=== PATIENT | female | born 1965 | race Caucasian/White ===

== ENCOUNTER 2019-11-26 14:02 | Outpatient (CLI) | payer BC, SELFPAY ==
--- NOTE | ~2019-11-26 | XR_ITS ---
[XR_RIBSBI_CR ] INDICATION: Fracture of multiple ribs. TECHNIQUE: Frontal projection of the upper ribs, frontal projection of the lower ribs, oblique projec tion of all the ribs, frontal inspiratory chest x-ray for interpretation. FINDINGS: There is a healed left sixth rib fracture. There is a possible healed right third rib fract ure. Osteopenia. There are no soft tissue abnormality seen. The lungs are clear. IMPRESSION: 1:No acute displaced rib fractures. Reviewed, dictated and finalized at location A.
== END 2019-11-26 14:03 | disposition home or self-care (01) ==
LOC: ANHIMG 14:12
PROVIDERS: PCP Family Medicine; Visit Provider Family Medicine
DX: Z12.31 Encounter for screening mammogram for malignant neoplasm of breast (principal); S22.43XA Multiple fractures of ribs, bilateral, initial encounter for closed fracture; M81.0 Age-related osteoporosis without current pathological fracture; X58.XXXA Exposure to other specified factors, initial encounter
CPT/HCPCS: 71110

== ENCOUNTER 2019-12-25 13:37 | Outpatient (CLI) | payer BC, SELFPAY ==
--- NOTE | ~2019-12-25 | DEXA_ITS ---
Bone Density Report Name: Brianna Correa Age: 54 Sex: Female Ethnicity: White Date of : 1965 Indication: postmenopausal osteoporosis; height loss; prior fracture; Referring Provider: Boo, Chidi Marquez Study: Bone densitometry was performed. Exam Date: December 25, 2019 Accession number: [id number] Bone Density: Region BMD T-score Z-score Classification AP Spine (L1-L4) 0.721 -3.0 -1.9 Osteoporosis Femoral Neck (Left) 0.503 -3.1 -2.1 Osteoporosis Total Hip (Left) 0.673 -2.2 -1.6 Osteopenia Total Hip Bilateral Avg 0.684 -2.1 -1.5 Osteopenia Femoral Neck (Right) 0.454 -3.6 -2.5 Osteoporosis Total Hip (Right) 0.694 -2.0 -1.4 Osteopenia World Health Organization criteria for BMD impression classify patients as: Normal (T-score at or above -1.0), Osteopenia (T-score between -1.0 and -2.5), or Osteoporosis (T-score at or below -2.5). 10-year Fracture Risk: FRAX not reported because: Some T-score for Spine Total or Hip Total or Femoral Neck at or below -2.5 Prior hip or vertebral fracture Previous Exams: Region Exam Age BMD T-score BMD Change BMD Change Date g/cm2 vs Baseline vs Previous AP Spine(L1-L4) 12/25/2019 54 0.721 -3.0 0.003(0.5%) 0.003(0.5%) 06/16/2017 51 0.717 -3.0 Total Hip(Left) 12/25/2019 54 0.673 -2.2 -0.005(-0.8%) -0.005(-0.8%) 06/16/2017 51 0.678 -2.2 Total Hip(Right) 12/25/2019 54 0.694 -2.0 -0.005(-0.8%) -0.005(-0.8%) 06/16/2017 51 0.700 -2.0 *Denotes significance at 95% confidence level, LSC for AP Spine = 0.022 g/cm2, LSC for Total Hip = 0.027 g/cm2 Clinical Information Provided by Patient: Have had a previous hip or vertebral fracture Has had a low trauma fracture Smokes Has used the following medications: Actonel (i.e. risedronate) Patient maximum height was 65 Menopause Age: 43 Does not regularly consume dairy products Drinks caffeinated beverages Onset of menses at age 13 Number of children 0 Impression: The patient has established osteoporosis, based on the Right Femoral Neck T-score and the existence of a prior fracture. The patient has risk factors, including: smoking, previous fracture. No significant bone loss was observed. Discussion: HIGH RISK OF FRACTURE. BONE DENSITY IS UNDESIRABLY LOW AT ONE OR MORE SKELETAL SITES, CONSISTENT WITH POSTMENOPAUSAL OSTEOPOROSIS. This patient's lowest T-score, in a patient who has previously fractured, meets the World Health Organization's (WHO)
--- NOTE | ~2019-12-25 | MM_ITS ---
EXAMINATION: MM screening nubia BI w elizabeth HISTORY: Screening mammogram TECHNIQUE: Craniocaudal and mediolateral oblique 3-D tomosynthesis images were obtained and synthetic 2-D images were generated. Bilateral rotated lateral cc views. CAD analysis was submitted and interp reted. COMPARISON: 08/07/2009 bilateral digital screening mammogram BREAST PARENCHYMAL COMPOSITION: The breasts are heterogeneously dense, which may obscure small masses . FINDINGS: There is no evidence of suspicious mass, calcification, or architectural distortion to sugg est malignancy in either breast. There has been no suspicious interval change. IMPRESSION: 1. No mammographic evidence of malignancy. 2. Recommend routine screening mammography in one year. BI-RADS Category 1: Negative Reviewed, dictated and finalized at location A.
== END 2019-12-25 13:38 | disposition home or self-care (01) ==
LOC: ANHIMG 13:39
PROVIDERS: PCP Family Medicine; Visit Provider Family Medicine
DX: Z12.31 Encounter for screening mammogram for malignant neoplasm of breast (principal); M81.0 Age-related osteoporosis without current pathological fracture; Z78.0 Asymptomatic menopausal state; M85.852 Other specified disorders of bone density and structure, left thigh; M85.851 Other specified disorders of bone density and structure, right thigh
CPT/HCPCS: 77063; 77067; 77080